=== PATIENT | male | born 1960 | race Caucasian/White ===

== ENCOUNTER 2016-11-26 15:44 | Inpatient (IN) | payer OTHER ==
[~2016-11-26] VITALS: Ht 175.3 cm; Wt 136.4 kg
[2016-11-26 16:13] LABS: HEMATOCRIT 43.2 % (38.0-50.0); MCH 32.2 PG (29.0-34.0); MCHC 33.6 G/DL (30.0-36.0); MEAN PLAT.VOLUME 9.1 uM^3 (9.0-12.4); PLATELET COUNT 255 K/uL (156-360); RBC DIS.WIDTH-CV 13.2 % (11.8-14.6); RBC DIS.WIDTH-SD 47.6 % (39-53); WHITE BLOOD COUNT 7.7 K/uL (4.1-10.2)
[2016-11-26 16:24] LABS: CHLORIDE 105 mEq/L (99-109); POTASSIUM 4.1 mEq/L (3.7-5.4); SODIUM 139 mEq/L (136-147)
[2016-11-26 16:26] LABS: GLUCOSE 135 mg/dL (70-99)
[2016-11-26 16:27] LABS: ANION GAP 9 MEQ/L (2-14)
[2016-11-26 16:30] LABS: GFR ESTIMATE (CALCULATED) > 59 mL/min/; UREA NITROGEN (BUN) 14 mg/dL (9-23)
[2016-11-26] MEDS ORDERED: LISINOPRIL-HCT1 EAC3 PO (18:14)
[2016-11-26] MEDS ORDERED: MELOXICAM15 MG PO (18:15)
[2016-11-26 20:47] LABS: HDL CHOLESTEROL 23 MG/DL (Desirable>=40); LDL CHOLESTEROL 75 mg/dL (Desirable<100); NON-HDL CHOLESTEROL 104 mg/dL (Desirable<160); TOTAL CHOLESTEROL 127 mg/dL (Desirable<200); TRIGLYCERIDES 146 MG/DL (Normal: <150); TROP-I INTERPRETATION NEGATIVE; TROPONIN-I < 0.01 ng/mL (0.0-0.30)
[2016-11-26 21:11] VITALS: BP 159/91
[2016-11-26 22:11] LABS: Estimated Average Glucose 160 mg/dL (70-123); HEMOGLOBIN A1c (GLYCOHEMOGLOB) 7.2 % HGB (Below 5.7)
[2016-11-27] VITALS: BP 129/66
[2016-11-27 02:10] LABS: TROP-I INTERPRETATION NEGATIVE; TROPONIN-I < 0.01 ng/mL (0.0-0.30)
[2016-11-27 04:00] VITALS: BP 154/86
[2016-11-27 08:20] VITALS: BP 157/92
[2016-11-27 08:48] LABS: HEMATOCRIT 41.1 % (38.0-50.0); MCH 32.2 PG (29.0-34.0); MCHC 33.1 G/DL (30.0-36.0); MCV 97.2 FL (86-99); MEAN PLAT.VOLUME 9.4 uM^3 (9.0-12.4); PLATELET COUNT 226 K/uL (156-360); RBC DIS.WIDTH-CV 13.4 % (11.8-14.6); RBC DIS.WIDTH-SD 47.9 % (39-53); RED BLOOD COUNT 4.23 M/uL (4.00-5.50); WHITE BLOOD COUNT 5.6 K/uL (4.1-10.2)
[2016-11-27 09:12] LABS: ALKALINE PHOSPHATASE 82 IU/L (3-129); ANION GAP 8 MEQ/L (2-14); CHLORIDE 106 MEQ/L (99-109); GFR ESTIMATE (CALCULATED) > 59 mL/min/; GLUCOSE 140 mg/dL (70-99); POTASSIUM 4.8 MEQ/L (3.7-5.4); SAMPLE HEMOLYSIS CHECK 0; SAMPLE ICTERIC CHECK 0; SAMPLE LIPEMIA CHECK 0; SODIUM 140 MEQ/L (136-147); TOTAL BILIRUBIN 0.6 MG/DL (0.0-1.0); UREA NITROGEN (BUN) 12 mg/dL (9-23)
[2016-11-27 09:15] LABS: TROP-I INTERPRETATION NEGATIVE; TROPONIN-I < 0.01 ng/mL (0.0-0.30)
[2016-11-27 15:16] VITALS: BP 160/93
[2016-11-27 16:53] LABS: BASE EXCESS 0.1 mEq/L (-3 to +3); BICARBONATE 24.7 mEq/L (22-26); CARBOXY HGB 0.1 % (0-5); METHEMOGLOBIN 0.8 % (0-1.5); PCO2 39 mm Hg (35-45); PO2 76 mm Hg (80-100); pH 7.41 (7.35-7.45)
[2016-11-27 16:54] LABS: SITE RR
[2016-11-27 16:55] LABS: COMMENTS - BLOOD GASES A+C+
[2016-11-27 16:59] LABS: DEVICE RA
[2016-11-27 19:39] VITALS: BP 175/90
[2016-11-27 23:31] VITALS: BP 157/93
[2016-11-28 04:02] VITALS: BP 149/88
[2016-11-28 08:27] VITALS: BP 147/73
[2016-11-28 11:44] VITALS: BP 146/74
[2016-11-28 16:40] VITALS: BP 138/74
[2016-11-28 20:18] VITALS: BP 146/84
[2016-11-28 21:49] LABS: POINT-OF-CARE METER ID UU14188625
[2016-11-28 23:27] VITALS: BP 139/66
[2016-11-29 04:04] VITALS: BP 144/82
[2016-11-29] MEDS ORDERED: ATORVASTATIN CA80 MG PO (07:28)
[2016-11-29] MEDS ORDERED: METFORMIN HCL500 MG PO (07:28)
[2016-11-29] MEDS ORDERED: ASPIRIN EC325 MG PO (07:28)
[2016-11-29 07:37] VITALS: BP 142/92
[2016-11-29 08:05] LABS: POINT-OF-CARE METER ID UU14188625
== END 2016-11-29 09:54 | disposition home health service (06) | DRG 65 ==
LOC: EME 15:44 → EDOF 19:52 → 5SOUTH 19:52
PROVIDERS: Internal Medicine; Physician Assistant Medical
DX: I63.9 Cerebral infarction, unspecified (principal); E66.01 Morbid (severe) obesity due to excess calories; Z68.41 Body mass index [BMI] 40.0-44.9, adult; I10 Essential (primary) hypertension; E11.9 Type 2 diabetes mellitus without complications; E04.1 Nontoxic single thyroid nodule; Z98.84 Bariatric surgery status; M19.90 Unspecified osteoarthritis, unspecified site; G83.24 Monoplegia of upper limb affecting left nondominant side; R29.810 Facial weakness; R47.9 Unspecified speech disturbances; I44.0 Atrioventricular block, first degree
CPT/HCPCS: 36600; 70450; 70496; 70498; 70551; 71020; 80048; 80053; 80061; 82803; 82948; 83036; 84443; 84484; 85027; 92610 GN; 93005; 93306; 93880; J1644; J1815; J2060; J7030